=== PATIENT | female | born 1960 | race Caucasian/White ===

== ENCOUNTER 2025-05-25 13:37 | Outpatient (AMB) | payer MEDICARE, SELFPAY ==
--- NOTE | 2025-05-25 13:40 | MHC.OFFWIV ---
Intake Vital Signs 05/25/25 13:43 05/25/25 13:49 Height 5 ft 4 in Weight 129 lb BMI 22.1 BP 84/62 L 96/64 Blood Pressure Location Rt brachial Lt brachial Position Sitting Sitting Pulse 111 H Pulse Source Pulse Oximeter Temp 98.4 F Temp Source Oral Pulse Oximetry (%) 99 Oxygen Delivery Method Room Air Intake Visit Reasons: UX SPECIALIST Cough, chest tightness, pain, body aches Intake Note: Pt roomed to 10. Speaks in full sentences. C/o cough, chest tightness and body aches x last week. Pt stated that she was seen by her insurance RN who came out to her home. She was prescribed ABT, inhaler and Prednisone. She took the last ABT last night. Pt stated that she woke up today with chest tightness radiating to under bilateral breast. No apparent distress noted. Pt stated that she feels that her ABT course should have been longer. TATIANA ([facility]) and Brenda ([facility]) aware. Allergies erythromycin base (ERYTHROMYCIN BASE) Allergy (Unknown, Unverified 05/25/25 13:44) HIVES levofloxacin (From LEVAQUIN) Allergy (Unknown, Unverified 05/25/25 13:44) HIVES sulfamethoxazole (From BACTRIM) Allergy (Unknown, Unverified 05/25/25 13:44) HIVES tetracycline (TETRACYCLINE) Allergy (Unknown, Unverified 05/25/25 13:44) NAUSEA & VOMITING trimethoprim (From BACTRIM) Allergy (Unknown, Unverified 05/25/25 13:44) HIVES Do you need a note to return to daycare/school/sports/work: No HPI HPI Comments History of Present Illness Details She presents to office with cough She said 1.5 weeks ago she started with a headcold which moved into her lungs Last Friday she had cough symptoms start 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 They thought ? L lobe PNA and she said she was given Amoxicillin x 1 week (finished last night), Prednisone 40mg daily x 5 days and Albuterol She was also using OTC cough syrup. After tx, cough has slightly improved but still lingers. Cough is productive. She has had tightness in her chest with cough for a few days, worse this morning She called PCP and asked for more antibiotics and PCP told her to be seen in person before then Denies chest pain but states that lungs feel tight No fever or chills + lingering congestion and sinus pressure Was having ear pain which resolved + decreased appetite, body aches and fatigue Normal bowel movements and urination. Review of Systems Const Reports body aches, Denies chills, Reports fatigue, Denies fever(s), Denies frequent falls, Denies increased appetite and Reports poor appetite Eyes Denies blurry vision and Denies change in vision ENT Denies dizziness, Denies ear discharge, Denies otalgia, Reports nasal congestion, Denies sinus pain, Denies sore throat and Denies throat swelling Card Reports chest pain (with coughing; ache), Denies syncope and Reports dyspnea Resp Reports change in phlegm color, Reports chest congestion, Reports cough, Reports pain with cough and Reports dyspnea GI Denies abdominal pain, Denies diarrhea and Denies vomiting Musc Reports myalgias Skin/Breast Denies rash Neuro Denies dizziness, Denies syncope and Denies frequent falls Endo Reports fatigue Aller/Immun Denies throat swelling Physical Exam Exam Exam: General: Non-toxic, NAD. Speaking full sentences. Skin: Warm dry throughout Eye: EOMI, PERRL HENT: Airway patent. Uvula midline. No pharyngeal erythema or edema. 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 Mucosa moist Bilateral canals clear. TM non-erythematous, non-bulging. No TM perforation or hemotympanum noted. Respiratory: CTA bilaterally. No wheezes, rales or rhonchi Cardiac: RRR. No murmur MSK: Full ROM extremities. Neurology: Alert. No aphasia or facial droop. Gait without abnormality Psych: Good mood and affect Vital Signs: Last Vital Signs Temp 98.4 F 05/25/25 13:43 Pulse 111 H 05/25/25 13:43 BP 96/64 05/25/25 13:49 Pulse Ox 99 05/25/25 13:43 Oxygen Delivery Method Room Air 05/25/25 13:43 BMI result Body Mass Index 22.1 Assessment & Plan Assessment & Plan (1) Cough: Code(s): R05.9 - Cough, unspecified Qualifiers: Cough type: subacute Qualified Code(s): R05.2 - Subacute cough Plan: Patient seen and evaluated. Pt seen and evaluated. I did not auscultate abnormal lung sounds and heart was regular rate and rhythm. O2 stable on intake. Will obtain chest xray to r/o PNA. Chest xray: I viewed and saw no infiltrate. + chronic stimulator inplace. No cardiomeagly noted. No pneumothorax or pleural effusion I re-evaluated patient. Oxyen was 98% on RA and HR 100bpm on pulseox. Discussed with pt that we have no ruled out PE although she has no risk factors for this; denies hx ca, blood clots, leg edema, calf pain, pain with breathing, estrogen use, clothing disorders or recent travel/surgery We discussed PE work up and she refused to go to ER currently She is aware of risks of this and states she will monitor symptoms and knows she needs to go to ER for additional evaluation if SOB/chest tightness persistents or she has onset of presyncope/dizziness, worsening dyspnea etc Tessalon will be given for cough Patient gave verbal understanding and had no additional questions or concerns at time of discharge All questions answered Orders: Orders XR chest 2V Today R05.9 - Cough, unspecified Medications: New benzonatate 100 mg PO BID-TID PRN 14 caps 0RF cough Coding Level of Care Code New Pt Level 3 (73559) Diagnoses Subacute cough R05.2 Cough type: subacute
[2025-05-25 13:43] VITALS: BP 84/62; PULSE 111; TEMP 36.9; O2SAT 99; BMI 22.1
[2025-05-25 13:49] VITALS: BP 96/64
--- OUTSIDE RECORDS SUMMARY | 2025-05-25 16:30 | XMS_ITS | Clinical Summary ---
Author Organization [address] [facility] Address [address] [place] [address] Phone Care Team Providers Care Pivot End Polisher Name Role Phone Tory Rodriguez [employer] OPERATOR Primary Care Provider + [phone] Allergies Active Allergy Reactions Criticality Noted Date Comments Erythromycin 01/30/2021 Levofloxacin 01/30/2021 Sulfamethoxazole-Trimethoprim 2020 Tetracycline 01/30/2021 Medications albuterol sulfate (ProAir RespiClick) 90 mcg/actuation aerosol powdr breath activated Inhale by mouth. Active cholecalciferol (VITAMIN D-3) 50 mcg (2,000 unit) capsule Take by mouth. A ctive DULoxetine (CYMBALTA) [address] capsule Take 1 capsule (60 mg total) by mouth 1 (one) time each day. Active methadone (DOLOPHINE) 10 mg tablet Take 0.5 tablets (5 mg total) by mouth 1 (one) time each day if needed for severe pain. Active lactose-reduced food (ENSURE PLUS ORAL) Take by mouth. Acti ve pantoprazole (PROTONIX) 40 mg EC tablet Take 1 tablet (40 mg total) by mouth 1 (one) time each day before breakfast. Active promethazine (PHENERGAN) 25 mg tablet Take 1 tablet (25 mg total) by mouth every 6 (six) hours if needed. Active simvastatin (ZOCOR) 20 mg tablet Take 2 tablets (40 mg total) by mouth at bedtime. Active tiZANidine (ZANAFLEX) 4 mg tablet Take 1 tablet (4 mg total) by mouth every 6 (six) hours if needed. Active GENERIC EXTERNAL MEDICATION Take 16 mg by mouth 3 (three) times a day. Belladonna ALK 0.13/phenobarb 16 mg Active cetirizine (ZyrTEC) 10 mg chewable tablet Chew 1 tablet (10 mg total) 1 (one) time each day. Active clonazePAM (KlonoPIN) 0.5 mg tablet Take 1 tablet (0.5 mg total) by mouth 2 (two) times a day. Max Daily Amount: 1 mg Active cyanocobalamin (VITAMIN B-12) 100 mcg tablet Take 1 tablet (100 mcg total) by mouth 1 (one) time each day. Active diclofenac (VOLTAREN) 1 % topical gel Apply topically 2 (two) times a day. Active PARoxetine (PAXIL) 40 mg tablet Take 1 tablet (40 mg total) by mouth 1 (one) time each day in the morning. Active Active Problems Problem Noted Date Diagnosed Date Atrophic vaginitis 04/16/2023 Mid back pain 04/16/2023 Overview (05/12/2024): Last Assessment & Plan: Ms. Ramos describes mid back pain that has been going on for about 3 years. She has a known thoracic syrinx is seen as far back as 2010 from T5-T7 with report showing that the diameter has increased from 2-1/2 now to 4 mm. The report also now identifies a tiny syrinx extending from the T7-8 level to the conus. Though not mentioned on previous studies, it can be seen through the retrospectoscope. She also has a T11-12 disc bulge with mild canal stenosis and no cord compression. I will review the films with Dr. Qiu but I do not imagine that this is anything that Dr. Qiu would offer surgery for. We talked about continuing physical therapy and trying acupuncture as reasonable conservative modalities. We talked about nicotine and its relationship to accelerated degenerative changes in the spine. I made strong recommendations that she make every effort towards smoking cessation. I told her I would be in touch after I reviewed her films with Dr. Qiu. Rectal disorder 04/16/2023 Urinary incontinence 04/16/2023 Multiple pulmonary nodules 10/10/2021 Chronic neck and back pain 03/15/2021 Assessment & Plan (05/18/2024 2:22 PM EST): I reviewed the previous cervical MRI from [facility] 12/18/2022 with Ms. Ramos and she is solidly fused from C3-C7 with only minor central disc bulge at C2-3. There is no stenosis or cord compression anywhere in the cervical spine. Though she has had some tingling in the left upper extremity, there is no new foraminal narrowing. She has very little mobility due to the extensive fusion in the C2-3 facets were fairly normal so, I expect that the few episodes of sharp neck pain are actually musculoskeletal. There is no finding here or in the thoracic spine MRI from 01/17/2023 to explain her [id number] gait imbalance. The T5-T7 syrinx on that study was stable back to 2011. There is no hyperreflexia on exam and she has only mild weakness in the left upper extremity which sounds as if it is greatly improved from preop 15 years ago. She felt reassured that there was no role for more surgery. Chronic pain syndrome 03/15/2021 Overview (05/12/2024): On methadone COPD (chronic obstructive pu lmonary disease) ([facility] V24, [facility] V28) 03/15/2021 Genital prolapse 03/15/2021 Overview (05/12/2024): rectocele History of alcohol abuse 03/15/2021 Osteoarthritis 03/15/2021 Osteoporosis 03/15/2021 Polycythemia 03/15/2021 Tubular adenoma of colon 03/15/2021 Overview (05/12/2024): CN 06/20/15 Anxiety state 02/24/2021 Park's esophagus without dysplasia 02/24/2021 Depressive disorder 02/24/2021 Hyperlipidemia 02/24/2021 Irritable bowel syndrome with diarrhea Encounters Date Type Department Care Team Description 04/07/2025 Telephone Neurosurgery [facility] [address] [place] [address] Chanell Stearns MA from Last 3 Months Surgical History Surgery Date Site/Laterality Comments COLONOSCOPY 12/08/20 15 PROCEDURE: HISTORICAL COLONOSCOPY; COMMENT: tubular adenoma, repeat 3 years APPENDECTOMY PROCEDURE: SC APPENDECTOMY CHOLECYSTECTOMY PROCEDURE: SC LAPAROSCOPY SURG CHOLECYSTECTOMY ESOPHAGOGASTRODUODENOSCOPY 06/20/20 15 PROCEDURE: SC ESOPHAGOGASTRODUODENOSCOPY TRANSORAL DIAGNOSTIC; COMMENT: Park's esophagus, repeat 3-5 years ANTERIOR CERVICAL DISCECTOMY W/ FUSION 07/14/2007 - 07/13/20 08 N/A CrLow Gonzalez; 3 procedures total, fused C3-[address] Gama Medical History Medical History Date Comments Anxiety state DX:Anxiety state Depressive disorder DX:Depressiv e disorder Hyperlipidemia DX:Hyperlipidemi a COPD (chronic obstructive pu lmonary disease) ([facility] V24, [facility] V28) 03/15/2021 DX:COPD (chronic o bstructive pulmonary disease) ([facility]) Tobacco use 03/15/2021 DX:Tobacco use Osteoporosis 03/15/2021 DX:Osteoporosis Chronic pain syndrome 03/15/2021 DX:Chronic pain syndrome; COMMENT: On methadone Tubular adenoma of colon 03/15/2021 DX:Tubu lar adenoma of colon; COMMENT: CN 06/20/15 Chronic neck and back pain 03/15/2021 DX:Ch ronic neck and back pain Osteoarthritis 03/15/2021 DX:Osteoarthriti s History of alcohol abuse 03/15/2021 DX:Hist ory of alcohol abuse Genital prolapse 03/15/2021 DX:Genital prol apse; COMMENT: rectocele Park's esophagus without dysplasia 02/24/2021 DX:Park's esophagus without dysplasia History of colon polyps 02/24/2021 DX:Histo ry of colon polyps Irritable bowel syndrome with diarrhea DX:Irritable bowel syndrome with diarrhea Polycythemia 03/15/2021 DX:Polycythemia Multiple pulmonary nodules 10/10/2021 DX:Mu ltiple pulmonary nodules Social History Tobacco Use Types Packs/Day Years Used Date Smoking Tobacco: Every Day Cigarettes Smokeless Tobacco: Never Tobacco Cessation:Ready to Q uit: Not Asked; Counseling Given: Not Answered Alcohol Use Standard Drinks/Week Comments Not Currently 0 (1 standard drink = 0.6 oz pur e alcohol) Comments Unknown Sex and Gender Information Value Date Recorded Sex Assigned at Female 02/01/2025 10:01 AM EDT Legal Sex Female 1:09 AM EST Gender Identity Female 02/01/2025 10:01 AM EDT Sexual Orientation Straight 02/01/2025 10 :01 AM EDT Obstetrics History Last Filed Vital Signs Vital Sign Reading Time Taken Comments Blood Pressure 105/62 05/07/2024 3:01 PM EDT Pulse 97 05/07/2024 3:01 PM EDT Temperature - - Respiratory Rate - - Oxygen Saturation - - Inhaled Oxygen Concentration - - Weight 61.7 kg (136 lb) 05/18/2024 1:31 PM EST Height 167.6 cm (5' 6 ) 05/18/2024 1:31 PM EST Body Mass Index 21.95 05/18/2024 1:31 PM EST Plan of Treatment Health Maintenance Due Date Last Done Comments Breast Cancer Screening 1960 DTaP,Tdap,and Td Vaccines (1 - Tdap) 1978 Pneumococcal Vaccine: 50+ Ye ars (1 of 2 - PCV) 1978 RSV Immunization Adult Patie nts (1 - Risk 50-74 years 1-dose series) 2009 Zoster Vaccines (1 of 2) 2009 Cholesterol Screening (Lipid Panel) 06/16/2022 Hepatitis C Screening 06/16/2022 Medicare Annual Wellness Visit 06/16/2022 Osteoporosis Screening (Bone Density Screening) 06/16/2022 Social Influencers of Health Screening 06/16/2022 Falls Risk Assessment 2024 Depression Screening 07/14/2024 COVID-19 Vaccine (1 - 2024-2 6 season) 2025 Influenza Vaccine (#1) 2025 Colorectal Cancer Screening: Colonoscopy 05/29/2025 05/29/2022 HIB Vaccines Aged Out No longer eligi ble based on patient's age to complete this topic HPV Vaccines Aged Out No longer eligi ble based on patient's age to complete this topic Hepatitis A Vaccines Aged Out No long er eligible based on patient's age to complete this topic Hepatitis B Vaccines Aged Out No long er eligible based on patient's age to complete this topic IPV Vaccines Aged Out No longer eligi ble based on patient's age to complete this topic MMR Vaccines Aged Out No longer eligi ble based on patient's age to complete this topic Meningococcal ACWY Vaccine Aged Out N o longer eligible based on patient's age to complete this topic Meningococcal B Vaccine Aged Out No l onger eligible based on patient's age to complete this topic RSV Immunization Patients Un umesh 20 months Aged Out No longer eligible b ased on patient's age to complete this topic Varicella Vaccines Aged Out No longer eligible based on patient's age to complete this topic Procedures Procedure Name Priority Date/Time Associated Diagnosis Comments COLONOSCOPY Routine 05/29/2022 from Last 3 Months or Most Recently Relevant to Health Maintenance Results * Colonoscopy (05/29/2022) Colonoscopy no interpretation , abstracted Anatomical Region Laterality Modality Other Historical Provider MD HEALTH MAINTENANCE Final Result from Last 3 Months or Most Recently Relevant to Health Maintenance Insurance [facility] MEDICARE Care Teams Pivot End Polisher Relationship Specialty Start Date End Date Tory Rodriguez NP [address] [place] [address] PCP - General 02/20/24
== END 2025-05-25 14:34 | disposition home or self-care (01) ==
PROVIDERS: PCP Family Medicine; Visit Provider Physician Assistant
DX: R05.2 Subacute cough (principal)

== ENCOUNTER 2025-05-25 13:37 | Outpatient (REF) | payer MEDICARE, SELFPAY ==
--- NOTE | ~2025-05-25 | XR_ITS ---
EXAMINATION: XR CHEST CLINICAL INFORMATION: R05.9 - Cough, unspecified COMPARISON: None available. TECHNIQUE: PA and lateral views. FINDINGS: Hyperinflated lungs. Probable focal bronchiectasis, right upper lung lobe. No consolidation, pleural effusion or pneumothorax. Cardiomediastinal silhouette size is small. Multilevel thoracolumbar spondylosis. S-shaped curvature of the thoracolumbar spine. Intraspinal canal neurostimulator electrodes and at the level region. Metallic plate lower cervical spine likely ACDF no fully included in the [id number]. XR/XR chest 2V IMPRESSION: Chronic interstitial lung disease suggesting COPD emphysematous type changes with probable cluster of bronchiectasis, right upper lung lobe. Scoliosis and multilevel thoracolumbar spondylosis. Electronically signed by: Jordin Sin MD 05/25/2025 02:57 PM [facility]
== END 2025-05-25 13:38 | disposition home or self-care (01) ==
LOC: HO.HMGCX 13:37
PROVIDERS: PCP Family Medicine; Visit Provider Physician Assistant
DX: R05.2 Subacute cough (principal); R07.89 Other chest pain
CPT/HCPCS: 71046; 99202

== ENCOUNTER → 2025-05-25 14:08 | Outpatient (BNV) | payer MEDICARE, SELFPAY | PROVIDERS: PCP Family Medicine; Visit Provider Radiology Diagnostic Radiology | DX: J84.9 Interstitial pulmonary disease, unspecified (principal); M47.815 Spondylosis without myelopathy or radiculopathy, thoracolumbar region; M41.85 Other forms of scoliosis, thoracolumbar region | CPT/HCPCS: 71046 ==